=== PATIENT | male | born 1970 | race Caucasian/White ===

== ENCOUNTER 2021-01-11 12:41 | Observation (INO) ==
[2021-01-11 14:07] LABS: BUN/Creatinine Ratio 16 (6-26); Blood Urea Nitrogen 35 mg/dL (6-20); Calcium 9.5 mg/dL (8.6-10.3); Carbon Dioxide 23 mEq/L (23-29); Chloride 109 mEq/L (98-107); Glucose 88 mg/dL (70-105); Osmolality,Calculated 299 (280-300); Potassium 4.2 mEq/L (3.5-5.1); Sodium 141 mEq/L (136-145); eGFR For African Americans 38 (> 60); eGFR For Non-African Americans 32 (> 60)
[2021-01-11 15:06] LABS: Creatine Kinase 101 Units/L (30-223)
[2021-01-11 15:18] LABS: Hematocrit 42.7 % (37.5-50.1); Hemoglobin 14.2 g/dL (12.9-16.9); Mean Corpuscular HGB Conc 33.3 g/dL (31.6-35.5); Mean Corpuscular Hemoglobin 29.9 pg (28.0-33.3); Mean Corpuscular Volume 89.9 fL (83.0-100.0); Mean Platelet Volume 9.9 fL (9.4-12.4); Platelet Count 412 K/mcL (140-400); Red Blood Count 4.75 M/mcL (4.19-5.50); Red Cell Distribution Width 12.1 % (11.5-14.5); White Blood Count 7.6 K/mcL (4.3-11.1)
[2021-01-11] MEDS: 0.9 % Sodium Chloride 1,000 ML IVC SCH ×3 (15:20→21:02)
[2021-01-11 16:00] LABS: Ethanol < 10 mg/dL (Less than 10)
[2021-01-11 16:38] LABS: Bilirubin,Urine Negative (Negative); Blood,Urine Trace (Negative); Clarity,Urine Clear (Clear); Color,Urine Yellow (Yellow); Glucose,Urine (UA) Normal (Normal); Granular Casts,Urine Few per lpf (None Seen); Hyaline Casts,Urine Many per lpf (None Seen); Ketones,Urine Negative (Negative); Leukocyte Esterase,Urine Negative (Negative); Mucus,Urine Few per lpf (None-Few); Nitrite,Urine Negative (Negative); PH,Urine 5.5 pH Units (5.0-8.0); Protein,Urine 100 mg/dL (Neg-Trace); RBC,Urine 0-3 per hpf (0-3); Specific Gravity,Urine 1.028 (1.010-1.025); Squamous Epithelial Cell,Urine Few per hpf (None-Few); Urobilinogen,Urine Normal (Normal)
[2021-01-11] MEDS ORDERED: Melatonin 3 MG TABLET PO PRN (16:42)
[2021-01-11] MEDS ORDERED: MOM Conc 10 ML UD.LIQ PO PRN (16:42)
[2021-01-11] MEDS ORDERED: Naloxone 0.4 MG/ML INJ IVP PRN (16:42)
[2021-01-11] MEDS ORDERED: Ondansetron 4 MG/2 ML VIAL IVP PRN (16:42)
[2021-01-11 16:49] LABS: Amphetamine Screen,Urine Positive ng/mL (Cutoff=1000); Barbiturate Screen,Urine Negative ng/mL (Cutoff=200); Benzodiazepines Screen,Urine Negative ng/mL (Cutoff=200); Cannabinoid Screen,Urine Negative ng/mL (Cutoff = 50); Cocaine Screen,Urine Positive ng/mL (Cutoff= 300); Opiate Screen,Urine Negative ng/mL (Cutoff=300); Phencyclidine Screen,Urine Negative ng/mL (Cutoff=25)
[2021-01-11] MEDS: *HR* Heparin 5,000 UNIT/ML VIAL SQ SCH (18:25)
[2021-01-12 03:21] LABS: Hematocrit 40.4 % (37.5-50.1); Hemoglobin 13.6 g/dL (12.9-16.9); Mean Corpuscular HGB Conc 33.7 g/dL (31.6-35.5); Mean Platelet Volume 9.6 fL (9.4-12.4); Platelet Count 409 K/mcL (140-400); Red Blood Count 4.54 M/mcL (4.19-5.50); Red Cell Distribution Width 12.2 % (11.5-14.5); White Blood Count 7.9 K/mcL (4.3-11.1)
[2021-01-12 03:39] LABS: Albumin 3.8 g/dL (3.5-5.7); Albumin/Globulin Ratio 1.1 (1.1-2.2); Bilirubin,Total 0.6 mg/dL (0.3-1.0); Globulin 3.4 g/dL (2.4-3.5); Potassium 3.9 mEq/L (3.5-5.1); Total Protein 7.2 g/dL (6.4-8.9)
[2021-01-12] MEDS: 0.9 % Sodium Chloride 1,000 ML IVC SCH ×2 (04:13→12:01)
[2021-01-12] MEDS: *HR* Heparin 5,000 UNIT/ML VIAL SQ SCH ×2 (05:55→18:21)
[2021-01-12 12:21] LABS: Sodium, Urine 51.8 mEq/L
[2021-01-13] MEDS: 0.9 % Sodium Chloride 1,000 ML IVC SCH (00:19)
[2021-01-13] MEDS: *HR* Heparin 5,000 UNIT/ML VIAL SQ SCH (05:38)
[2021-01-13 07:32] VITALS: BP 114/71; PULSE 66; TEMP 97.6; O2SAT 98
[2021-01-13 08:06] LABS: BUN/Creatinine Ratio 23 (6-26); Blood Urea Nitrogen 26 mg/dL (6-20); Calcium 9.1 mg/dL (8.6-10.3); Carbon Dioxide 22 mEq/L (23-29); Chloride 114 mEq/L (98-107); Glucose 97 mg/dL (70-105); Osmolality,Calculated 299 (280-300); Potassium 3.9 mEq/L (3.5-5.1); Sodium 142 mEq/L (136-145); eGFR For African Americans > 60 (> 60); eGFR For Non-African Americans > 60 (> 60)
== END 2021-01-13 14:46 | disposition home or self-care (01) ==
LOC: 3ANU 12:41 → EMEROOARM 12:41 → SUATTDRO 15:40 → 3ANU 17:02
PROVIDERS: ADMIT General Practice; ATTEND Internal Medicine